=== PATIENT | male | born 1985 | race Caucasian/White ===

== ENCOUNTER 2019-05-03 11:59 | Emergency (ER) | payer OTHER ==
[2019-05-03 13:28] LABS: ABS Basophils 0.1 10^3/ul (0-0.2); ABS Eosinophils 0.1 10^3/ul (0-0.6); ABS Lymphocytes 2.2 10^3/ul (1.0-4.8); ABS Monocytes 0.6 10^3/ul (0-0.8); ABS Neutrophils 4.4 10^3/ul (1.5-7.7); Eosinophil % 1.4 %; Hematocrit 44 % (42-52); Hemoglobin 15.2 g/dL (14.0-18.0); Lymphocyte % 29.5 %; Mean Corpuscular HGB Conc 34 g/dL (31-36); Mean Corpuscular Hemoglobin 32 pg (27-31); Mean Corpuscular Volume 92 fL (80-94); Mean Platelet Volume 7.3 fL (7.4-10.4); Nucleated Red Blood Cells % 0.1; Platelet Count 288 10^3/uL (150-450); Red Blood Count 4.79 10^6 /uL (4.18-5.48); Red Cell Distribution Width 13 % (10-15); White Blood Count 7.4 10^3/uL (3.5-10.8)
[2019-05-03] MEDS ORDERED: Ketorolac INJ* 30 MG/ML 1 ML VIAL IM ONE (13:32)
--- NOTE | 2019-05-03 13:42 | ED ---
Abdominal Pain/Male - HPI Summary HPI Summary: This pt is a 34 Y/O M presenting to [facility] with a CC of L-sided abd pain initially onset about 1 month ago. The pain is intermittent, but this episode onset this morning, is currently rated at 10/10, and radiates to his back. He states that talking, standing, walking, exertion and deep breaths all aggravate his sx. He also notes an increase in pain in the morning. He reports associated intermittent vomiting since initial onset. He denies diarrhea, constipation, dysuria, hematuria, and incontinence. He has a PMHx of diverticulosis, and degenerative disk disease. He smokes cigarettes and marijuana. He drinks occasionally. He was at the [facility] last week and was dx'ed with diverticulosis. Pt's medications reviewed, allergies noted. - History of Current Complaint Chief Complaint: EDAbdPain Stated Complaint: LEFT SIDED ABD/FLANK PAIN PER PT Time Seen by Provider: 05/03/19 13:23 Hx Obtained From: Patient Onset/Duration: Gradual Onset, Lasting Weeks - 4, Still Present, Worse Since - today 05/03/19 Timing: Constant - waxes and wanes Severity Initially: Moderate Severity Currently: Severe Pain Intensity: 10 Pain Scale Used: 0-10 Numeric Location: Diffuse - L sided Radiates: Yes Radiates to: Back Aggravating Factor(s): Movement, Deep Breaths, Other: - talking, standing, walking, exertion Alleviating Factor(s): Nothing Associated Signs And Symptoms: Positive: Negative - chills, incontinence.. Negative: Fever, Constipation, Blood in Stool, Urinary Symptoms, Diarrhea - Allergies/Home Medications Allergies/Adverse Reactions: Allergies Allergy/AdvReac Type Severity Reaction Status Date / Time No Known Allergies Allergy Verified 05/03/19 12:11 Home Medications: Home Medications Ibuprofen TAB* [Advil TAB*] 200 mg PO Q8H PRN 05/03/19 [History Confirmed ] PMH/Surg Hx/FS Hx/Imm Hx Previously Healthy: Yes GI History: Reports: Hx Diverticulosis Sensory History: Denies: Hx Contacts or Glasses Opthamlomology History: Denies: Hx Contacts or Glasses - Surgical History Surgical History: None Infectious Disease History: No Infectious Disease History: Denies: Traveled Outside the [place] in Last 30 Days - Family History Known Family History: Negative: Hypertension - Social History Occupation: Employed Full-time Lives: Alone Alcohol Use: Rare Hx Substance Use: Yes Substance Use Type: Reports: None, Marijuana Hx Tobacco Use: Yes Smoking Status (MU): Light Every Day Tobacco Smoker Review of Systems Negative: Fever, Chills Negative: Diarrhea Genitourinary: Negative Negative: dysuria, hematuria, incontinence All Other Systems Reviewed And Are Negative: Yes Physical Exam - Summary Physical Exam Summary: Constitutional: Well-developed, Well-nourished, Alert. (-) Distressed Skin: Warm, Dry HENT: Normocephalic; Atraumatic Eyes: Conjunctiva normal Neck: Musculoskeletal ROM normal neck. (-) JVD, (-) Stridor, (-) Tracheal deviation Cardio: Rhythm regular, rate normal, Heart sounds normal; Intact distal pulses; The pedal pulses are 2+ and symmetric. Radial pulses are 2+ and symmetric. (-) Murmur Pulmonary/Chest wall: Effort normal. (-) Respiratory distress, (-) Wheezes, (-) Rales Abd: Soft, Point tenderness on the left, upper, and middle abdomen, L CVA tenderness, no rebound or guarding, (-) Distension Musculoskeletal: (-) Edema Lymph: (-) Cervical adenopathy Neuro: Alert, Oriented x3 Psych: Mood and affect Normal Triage Information Reviewed: Yes Vital Signs On Initial Exam: Initial Vitals Temp Pulse Resp BP Pulse Ox 98.5 F 76 16 130/91 99 05/03/19 12:08 05/03/19 12:08 05/03/19 12:08 05/03/19 12:08 05/03/19 12:08 Vital Signs Reviewed: Yes Diagnostics - Vital Signs Vital Signs Temp Pulse Resp BP Pulse Ox 05/03/19 12:08 98.5 F 76 16 130/91 99 - Laboratory Lab Results: Lab Results 05/03/19 Range/Units 13:20 WBC 7.4 (3.5-10.8) 10^3/uL RBC 4.79 (4.18-5.48) 10^6 /uL Hgb 15.2 (14.0-18.0) g/dL Hct 44 (42-52) % MCV 92 (80-94) fL MCH 32 H (27-31) pg MCHC 34 (31-36) g/dL RDW 13 (10-15) % Plt Count 288 (150-450) 10^3/uL MPV 7.3 L (7.4-10.4) fL Neut % (Auto) 60.0 % Lymph % (Auto) 29.5 % [place] % (Auto) 8.3 % Eos % (Auto) 1.4 % Baso % (Auto) 0.8 % Absolute Neuts (auto) 4.4 (1.5-7.7) 10^3/ul Absolute Lymphs (auto) 2.2 (1.0-4.8) 10^3/ul Absolute Monos (auto) 0.6 (0-0.8) 10^3/ul Absolute Eos (auto) 0.1 (0-0.6) 10^3/ul Absolute Basos (auto) 0.1 (0-0.2) 10^3/ul Absolute Nucleated RBC 0.0 10^3/ul Nucleated RBC % 0.1 Result Diagrams: 05/03/19 13:20 05/03/19 13:20 Lab Statement: Any lab studies that have been ordered have been reviewed, and results considered in the medical decision making process. - CT CT a/p CT Interpretation Completed By: Radiologist Summary of CT Findings: No abnormal masses or fluid collections are identified. ED physician has reviewed this report. Abdominal Pain Male Course/Dx - Course Course Of Treatment: Patient is here with left sided abdominal pain that is worse with movement. Patient did have abdominal tenderness and left CVA tenderness. Patient had a CBC, CMP, lipase which were all grossly unremarkable. Patient negative UA for any abnormality. Patient has CT scan which showed no evidence of diverticulitis or nephrolithiasis. - Diagnoses Provider Diagnoses: Left sided abdominal pain, Left flank pain Discharge ED - Sign-Out/Discharge Documenting (check all that apply): Patient Departure - discharge Patient Received Moderate/Deep Sedation with Procedure: No - Discharge Plan Condition: Stable Disposition: HOME Prescriptions: Acetaminophen with Codeine [Acetaminophen-Cod #3 Tablet] 1 each PO Q6HR PRN #12 tablet MDD 4 tablets PRN Reason: Pain - Severe Patient Education Materials: Abdominal Pain (ED), Flank Pain (ED) Referrals: [facility] [Outside] - 2 Days Additional Instructions: PLEASE FOLLOW UP WITH [facility] IN 2-3 DAYS AND RETURN TO THE EMERGENCY DEPARTMENT FOR ANY NEW OR WORSENING SYMPTOMS. Take Ibuprofen for pain management, and the prescribed pain medications if pain becomes too excessive. - Billing Disposition and Condition Condition: STABLE Disposition: Home - Attestation Statements Document Initiated by Lynda: Yes Documenting Scribe: Mukund Haider Provider For Whom Lynda is Documenting (Include Credential): Nilton Spicer MD Scribe Attestation: Mukund Conner, scribed for Nilton Spicer MD on 05/03/19 at 1820. Scribe Documentation Reviewed: Yes Provider Attestation: The documentation as recorded by the Mukund martinez accurately reflects the service I personally performed and the decisions made by me, Nilton Spicer MD Status of Scribe Document: Viewed
[2019-05-03 13:45] LABS: ALT 23 U/L (7-52); AST 22 U/L (13-39); Albumin 4.7 g/dL (3.2-5.2); Alkaline Phosphatase 72 U/L (34-104); Anion Gap 5 mmol/L (2-11); BUN/Creatinine Ratio 8.6 (8-20); Blood Urea Nitrogen 7 mg/dL (6-24); C Reactive Protein < 1.00 mg/L (<8.01); CO2 Carbon Dioxide 29 mmol/L (22-32); Calcium 9.7 mg/dL (8.6-10.3); Chloride 103 mmol/L (101-111); EGFR African American 133.6 (>60); EGFR Non-African American 110.4 (>60); Globulin 2.4 g/dL (2-4); Glucose 90 mg/dL (70-100); Potassium 4.1 mmol/L (3.5-5.0); Sodium 137 mmol/L (135-145); Total Protein 7.1 g/dL (6.4-8.9)
[2019-05-03 14:09] LABS: Urine Appearance Cloudy; Urine Bilirubin Negative (Negative); Urine Blood Negative (Negative); Urine Color Yellow; Urine Glucose Negative (Negative); Urine Ketones Negative (Negative); Urine Nitrite Negative (Negative); Urine Protein Negative (Negative); Urine Specific Gravity 1.018 (1.010-1.030); Urine Urobilinogen Negative (Negative)
[2019-05-03] MEDS ORDERED: Iohexol 300* (CONTRAST) 10 ML SDV IV ONE (15:42)
[2019-05-03 17:19] VITALS: BP 112/75
== END 2019-05-03 17:19 | disposition home or self-care (01) ==
LOC: ED 11:59
DX: R10.32 Left lower quadrant pain (principal); K57.90 Diverticulosis of intestine, part unspecified, without perforation or abscess without bleeding; F17.200 Nicotine dependence, unspecified, uncomplicated
CPT/HCPCS: 36415; 74177; 80053; 81003; 83605; 83690; 85025; 86140; 96372; 99283; J1885; Q9967